=== PATIENT | male | born 1970 | race Caucasian/White ===

== ENCOUNTER 2023-09-03 08:37 | Outpatient (CLI) | payer OTHER, BC, SELFPAY | END 2023-09-03 08:38 | disposition home or self-care (01) | PROVIDERS: PCP Family Medicine; Visit Provider Family Medicine | DX: I10 Essential (primary) hypertension (principal); R59.1 Generalized enlarged lymph nodes; Z13.6 Encounter for screening for cardiovascular disorders | CPT/HCPCS: 80048; 80061 ==

== ENCOUNTER 2025-05-12 08:16 | Outpatient (CLI) | payer OTHER, BC, SELFPAY | END 2025-05-12 08:17 | disposition home or self-care (01) | PROVIDERS: PCP Family Medicine; Visit Provider Family Medicine | DX: I10 Essential (primary) hypertension (principal); Z12.5 Encounter for screening for malignant neoplasm of prostate; Z13.6 Encounter for screening for cardiovascular disorders | CPT/HCPCS: 80048; 80061; G0103 ==